=== PATIENT | female | born 1985 | race African-American/Black ===

== ENCOUNTER 2017-04-18 19:19 | Emergency (ER) | payer MEDICAID ==
[~2017-04-18] VITALS: Ht 154.9 cm; Wt 64.0 kg
[2017-04-18] MEDS ORDERED: ACETAMINOPHEN 325MG TABLET PO ONE (23:45)
[2017-04-19 00:28] LABS: BASOPHILS % 0.6 % (0.0-2.0); EOSINOPHILS % 6.7 % (0.0-5.0); HEMATOCRIT. 32.4 % (36.0-48.0); HEMOGLOBIN. 10.9 g/dL (12.0-16.0); LYMPHOCYTES % 42.3 % (20.0-50.0); MEAN CORPUSCULAR HEMOGLOBIN 28.8 pg (28.0-32.0); MEAN CORPUSCULAR VOLUME 85.7 fL (81.0-99.0); MEAN PLATELET VOLUME 7.2 fl (7.4-10.4); MONOCYTES % 8.9 % (2.0-8.0); NEUTROPHILS % 41.5 % (40.0-76.0); PLATELET 260 x1000/uL (130-400); RED BLOOD CELL COUNT 3.79 mill/uL (4.2-5.4); RED CELL DISTRIBUTION WIDTH 14.4 % (11.6-14.6)
[2017-04-19 00:34] LABS: CHLORIDE 105 mEq/L (98-107)
[2017-04-19 00:38] LABS: HCG SCREEN NEGATIVE
[2017-04-19 00:40] LABS: CARBON DIOXIDE 26 mEq/L (21-32)
[2017-04-19 01:08] VITALS: BP 109/63
[2017-04-19 01:16] LABS: CLARITY URINE CLEAR (CLEAR); COLOR URINE YELLOW (YELLOW); GLUCOSE URINE NEGATIVE (NEGATIVE); KETONES URINE NEGATIVE (NEGATIVE); LEUKOCYTE ESTERASE URINE NEGATIVE (NEGATIVE); NITRITE URINE NEGATIVE (NEGATIVE); OCCULT BLOOD URINE NEGATIVE (NEGATIVE); PROTEIN URINE NEGATIVE (NEGATIVE); SPECIFIC GRAVITY URINE 1.008 (1.005-1.030); UROBILINOGEN URINE 0.2 E.U./dL (0.2-1.0)
== END 2017-04-19 02:32 | disposition home or self-care (01) ==
LOC: ER 19:19
DX: N83.209 Unspecified ovarian cyst, unspecified side (principal); D25.9 Leiomyoma of uterus, unspecified; R11.2 Nausea with vomiting, unspecified; R30.0 Dysuria; Z88.2 Allergy status to sulfonamides; Z88.6 Allergy status to analgesic agent
CPT/HCPCS: 36415; 76830; 76856; 80048; 81003; 84703; 85025; 99285

== ENCOUNTER 2018-10-17 17:20 | Emergency (ER) | payer MEDICAID, MEDICARE ==
[~2018-10-17] VITALS: Ht 162.6 cm; Wt 69.0 kg
[2018-10-17 17:30] VITALS: BP 175/103
[2018-10-17] MEDS ORDERED: TETANUS, DIPHTHERIA, PERTUSSIS VAC/PF 0.5ML (>7YR OLD) IM ONE (19:30)
[2018-10-17] MEDS ORDERED: BACITRACIN ZINC OINT UDPKT TOP ONE (19:30)
== END 2018-10-17 20:32 | disposition home or self-care (01) ==
LOC: ER 17:20
DX: T23.052A Burn of unspecified degree of left palm, initial encounter (principal); R03.0 Elevated blood-pressure reading, without diagnosis of hypertension; Z88.2 Allergy status to sulfonamides; Z98.890 Other specified postprocedural states; X15.8XXA Contact with other hot household appliances, initial encounter; Y93.89 Activity, other specified; Y92.010 Kitchen of single-family (private) house as the place of occurrence of the external cause
CPT/HCPCS: 16020; 90471; 90715; 99283; 99284

== ENCOUNTER 2019-05-11 14:10 | Emergency (ER) | payer MEDICARE ==
[~2019-05-11] VITALS: Ht 157.5 cm; Wt 73.0 kg
[2019-05-11 15:44] VITALS: BP 136/100
== END 2019-05-11 15:50 | disposition home or self-care (01) ==
LOC: ER 14:17
DX: T59.91XA Toxic effect of unspecified gases, fumes and vapors, accidental (unintentional), initial encounter (principal); X58.XXXA Exposure to other specified factors, initial encounter; Y93.89 Activity, other specified; Y92.89 Other specified places as the place of occurrence of the external cause; Y99.8 Other external cause status; Z98.890 Other specified postprocedural states; Z88.2 Allergy status to sulfonamides
CPT/HCPCS: 81025; 99283

== ENCOUNTER 2025-07-12 00:43 | Emergency (ER) | payer SELFPAY ==
[~2025-07-12] VITALS: Ht 157.5 cm; Wt 81.7 kg
[2025-07-12 00:58] VITALS: O2SAT 98
[2025-07-12 01:14] VITALS: BP 121/86; PULSE 109; RESP 20; TEMP 36.7; O2SAT 99
== END 2025-07-12 03:40 | disposition left against medical advice (07) ==
LOC: ER 00:43
DX: S01.81XA Laceration without foreign body of other part of head, initial encounter (principal); I10 Essential (primary) hypertension; Z98.890 Other specified postprocedural states; Z53.21 Procedure and treatment not carried out due to patient leaving prior to being seen by health care provider; X58.XXXA Exposure to other specified factors, initial encounter; Y93.89 Activity, other specified; Y92.89 Other specified places as the place of occurrence of the external cause; Y99.8 Other external cause status